=== PATIENT | female | born 1945 | race Caucasian/White ===

== ENCOUNTER 2020-03-07 09:02 | Inpatient (IN) | payer MEDICARE, OTHER ==
[2020-03-03 13:10] LABS: Basophils # (auto) 0.1 10 ^3/uL (0-0.2); Eosinophils # (auto) 0.1 10 ^3/uL (0-0.8); Eosinophils % (auto) 1.7 % (0.0-7.0); Hematocrit 47.2 % (36.0-46.0); Hemoglobin 15.2 g/dL (12.2-16.2); Lymphocytes # (auto) 0.7 10 ^3/uL (0.4-5.4); Lymphocytes % (auto) 17.3 % (10.0-50.0); Mean Corpuscular Hemoglobin 29.1 pg (28.0-32.0); Mean Corpuscular Hgb Conc. 32.1 g/dL (32.0-36.0); Mean Corpuscular Volume 90.4 fL (80.0-100.0); Monocytes # (auto) 0.2 10 ^3/uL (0-1.3); Monocytes % (auto) 5.4 % (0.0-12.0); Neutrophils # (auto) 2.9 10 ^3/uL (1.6-8.6); Neutrophils % (auto) 73.6 % (37.0-80.0); Nucleated Red Blood Cells % 0.7 %; Platelet Count (auto) 107 10^3/uL (140-450); Red Blood Cells 5.22 10^6/uL (4.0-5.20); Red Cell Distribution Width 16.6 % (11.8-14.3)
[2020-03-03 13:26] LABS: INR 1.12 (0.9-1.15); Partial Thromboplastin Time 32.1 sec (23.64-32.05)
[2020-03-03 13:29] LABS: Urine Bacteria FEW /hpf (None Seen); Urine Blood Negative /uL (Negative); Urine Hyaline Cast FEW /lpf (0 - 2); Urine Mucus FEW (None Seen); Urine Specific Gravity 1.016 (1.001-1.035); Urine WBC 1 /hpf (0 - 5)
[2020-03-03 14:25] LABS: Albumin 4.2 g/dL (3.4-5.0); Calcium 9.7 mg/dL (8.5-10.1); Potassium 4.1 mmol/L (3.5-5.1)
[2020-03-03 14:28] LABS: BUN/Creatinine Ratio 20.5; Bilirubin, Total 0.8 mg/dL (0.2-1.0); Total Protein 8.2 g/dL (6.4-8.2)
[~2020-03-07] VITALS: Ht 165.1 cm; Wt 100.0 kg
[~2020-03-07 09:02] MED LIST: ALLO100T PO; AMLO5TAB15 PO; FURO40TA4 PO; HYDR-531 PO
[2020-03-07] MEDS ORDERED: ACETAMINOPHEN IV 100 ML IV ONE (09:58)
[2020-03-07] MEDS ORDERED: CELECOXIB 100 MG CAP ONE (09:58)
[2020-03-07] MEDS ORDERED: ceFAZolin 1GM/50ML 50 ML IV ONE ×2 (09:58→10:48)
[2020-03-07] MEDS ORDERED: PREGABALIN CAPSULE 75 MG CAP ONE (09:58)
[2020-03-07] MEDS ORDERED: GENTAMICIN SULF 80 MG/2 ML VIAL ONE (09:59)
[2020-03-07] MEDS ORDERED: ceFAZolin 1GM 2 GM in D5W 5% 100 ML IV ONE (10:00)
[2020-03-07] MEDS ORDERED: GENTAMICIN SULFATE 80 MG in D5W 5% 100 ML IV ONE (10:00)
[2020-03-07] MEDS ORDERED: ACETAMINOPHEN IV 1000 MG/100ML (10MG/ML) IV ONE (10:00)
[2020-03-07] MEDS ORDERED: CELECOXIB 100 MG CAP PO ONE (10:00)
[2020-03-07] MEDS ORDERED: BUPIVACAINE W/ EPINEPH 0.25% INJ 50ML MDV ONE (11:48)
[2020-03-07] MEDS ORDERED: TRANEXAMIC ACID 10 ML ONE (11:48)
[2020-03-07] MEDS ORDERED: VANCOMYCIN HCL 1000 MG VL ONE (11:49)
[2020-03-07] MEDS ORDERED: KETOROLAC TROMETH 30 MG/ML 1ML VIAL ONE (11:49)
[2020-03-07] MEDS ORDERED: TETRACAINE 1% INJ 2 ML VIAL IJ ONE (11:51)
[2020-03-07] MEDS ORDERED: MORPHINE SULF(PF) 0.5MG/ML 10ML VIAL ONE ×2 (12:10→12:59)
[2020-03-07] MEDS ORDERED: MIDAZOLAM HCL 1MG/1ML-2 ML VIAL ONE ×2 (12:11→12:40)
[2020-03-07] MEDS ORDERED: fentaNYL CITRATE 100 MCG/2 ML VL ONE (12:11)
[2020-03-07] MEDS ORDERED: PROPOFOL 10 MG/ML 20 ML IV ONE (12:39)
[2020-03-07] MEDS ORDERED: ePHEDrine SULFATE 50 MG/ML AMP IV PRN (13:15)
[2020-03-07] MEDS ORDERED: NALOXONE HCL 0.4 MG/ML VIAL IV PRN (13:15)
[2020-03-07] MEDS ORDERED: MIDAZOLAM HCL 1MG/1ML-2 ML VIAL IV PRN (13:15)
[2020-03-07] MEDS ORDERED: NALBUPHINE HCL 10 MG/1ml INJECTION SUBCUT ONE (13:15)
[2020-03-07] MEDS ORDERED: ONDANSETRON HCL 4 MG/2 ML VIAL IV PRN ×2 (13:15→14:30)
[2020-03-07] MEDS ORDERED: LABETALOL HCL 5 MG/ML 4ML SYRINGE IV PRN (13:15)
[2020-03-07] MEDS ORDERED: diphenhdrAMINE HCL 50 MG/1 ML VL IV PRN (13:15)
[2020-03-07] MEDS ORDERED: HYDROmorphone HCL 2 MG/ML VL IV PRN (13:15)
[2020-03-07] MEDS ORDERED: DexAMETHasone SOD PHOS 10MG/1ML VIAL INJ IV PRN (13:15)
[2020-03-07] MEDS: LACTATED RINGER'S 1,000 ML IV SCH (14:27)
[2020-03-07] MEDS: ceFAZolin 1GM/50ML 50 ML IV SCH ×2 (14:30→20:30)
[2020-03-07] MEDS ORDERED: BISACODYL 5 MG EC TAB PO PRN (14:30)
[2020-03-07] MEDS ORDERED: ACETAMINOPHEN 325 MG TAB PO PRN (14:30)
[2020-03-07] MEDS ORDERED: NITROGLYCERIN 0.4 MG SL TAB SL PRN (14:30)
[2020-03-07] MEDS ORDERED: MORPHINE SULF INJ 2 MG/ML SYRINGE 1ML IV PRN (14:30)
[2020-03-07 22:00] VITALS: BP_SYST 134; BP_SYST 86; BP_DIAS 55; BP_DIAS 66
[2020-03-07 23:00] VITALS: BP 121/59
[2020-03-07] MEDS: DOCUSATE SOD 100 MG CAP PO SCH (23:27)
[2020-03-07] MEDS: SODIUM CHLOR 0.9% PF (SALINE LOCK) 10ML VIAL/SYR IV SCH (23:28)
[2020-03-08] VITALS (12 sets, daily range): BP systolic 80–102; BP diastolic 50–65
[2020-03-08] MEDS: LACTATED RINGER'S 1,000 ML IV SCH ×3 (01:37→22:04)
[2020-03-08] MEDS: ceFAZolin 1GM/50ML 50 ML IV SCH (02:06)
[2020-03-08] MEDS: SODIUM CHLOR 0.9% PF (SALINE LOCK) 10ML VIAL/SYR IV SCH ×3 (06:06→22:04)
[2020-03-08 07:17] LABS: Hematocrit 31.1 % (36.0-46.0); Hemoglobin 10.2 g/dL (12.2-16.2)
[2020-03-08 07:51] LABS: Potassium 4.3 mmol/L (3.5-5.1)
[2020-03-08 08:02] LABS: Albumin 2.7 g/dL (3.4-5.0); BUN/Creatinine Ratio 20.6; Bilirubin, Total 0.6 mg/dL (0.2-1.0); Calcium 8.1 mg/dL (8.5-10.1); Total Protein 5.5 g/dL (6.4-8.2)
[2020-03-08] MEDS ORDERED: amLODIPine BESYLATE 5 MG TAB PO SCH (10:00)
[2020-03-08] MEDS ORDERED: FUROSEMIDE 40 MG TAB PO SCH (10:00)
[2020-03-08] MEDS: DOCUSATE SOD 100 MG CAP PO SCH ×2 (10:11→22:04)
[2020-03-08] MEDS: ENOXAPARIN SOD 40 MG/0.4 ML SYRINGE SC SCH (10:12)
[2020-03-08] MEDS: SODIUM CHLORIDE 0.9% 1,000 ML IV SCH (17:01)
[2020-03-09] MEDS: SODIUM CHLORIDE 0.9% 1,000 ML IV SCH ×3 (03:04→22:15)
[2020-03-09 05:00] VITALS: BP 91/53
[2020-03-09] MEDS: HYDROmorphone HCL 2 MG/ML VL IV PRN ×3 (07:13→15:38)
[2020-03-09] MEDS: LACTATED RINGER'S 1,000 ML IV SCH ×2 (07:14→15:28)
[2020-03-09] MEDS: SODIUM CHLOR 0.9% PF (SALINE LOCK) 10ML VIAL/SYR IV SCH ×3 (07:14→21:48)
[2020-03-09 07:18] LABS: Hemoglobin 9.7 g/dL (12.2-16.2)
[2020-03-09 08:33] VITALS: BP 90/51
[2020-03-09] MEDS: ALLOPURINOL 100 MG TAB PO SCH (09:21)
[2020-03-09] MEDS: ENOXAPARIN SOD 40 MG/0.4 ML SYRINGE SC SCH (09:21)
[2020-03-09] MEDS: DOCUSATE SOD 100 MG CAP PO SCH ×2 (09:21→21:48)
[2020-03-09] MEDS: HYDROcodone-ACET 10/325MG TAB PO PRN ×2 (12:11→21:04)
[2020-03-09 12:33] VITALS: BP 89/96
[2020-03-09] MEDS ORDERED: SODIUM CHLORIDE 0.9% 1,000 ML IV SCH (14:15)
[2020-03-09 14:44] LABS: Basophils # (auto) 0 10 ^3/uL (0-0.2); Basophils % (auto) 0.7 % (0.0-2.0); Eosinophils # (auto) 0.1 10 ^3/uL (0-0.8); Eosinophils % (auto) 1.7 % (0.0-7.0); Hematocrit 27.7 % (36.0-46.0); Hemoglobin 9.1 g/dL (12.2-16.2); Lymphocytes # (auto) 0.6 10 ^3/uL (0.4-5.4); Lymphocytes % (auto) 13.2 % (10.0-50.0); Mean Corpuscular Hemoglobin 29.8 pg (28.0-32.0); Mean Corpuscular Hgb Conc. 32.9 g/dL (32.0-36.0); Mean Corpuscular Volume 90.6 fL (80.0-100.0); Monocytes # (auto) 0.3 10 ^3/uL (0-1.3); Monocytes % (auto) 7.1 % (0.0-12.0); Neutrophils # (auto) 3.3 10 ^3/uL (1.6-8.6); Neutrophils % (auto) 77.3 % (37.0-80.0); Platelet Count (auto) 87 10^3/uL (140-450); Red Blood Cells 3.06 10^6/uL (4.0-5.20); Red Cell Distribution Width 16.9 % (11.8-14.3); White Blood Cell 4.3 10^3/uL (4.4-10.8)
[2020-03-09 15:01] LABS: BUN/Creatinine Ratio 27.1; Calcium 7.8 mg/dL (8.5-10.1); Potassium 4.4 mmol/L (3.5-5.1)
[2020-03-09 16:42] VITALS: BP 89/53
[2020-03-09 22:00] VITALS: BP 94/56
[2020-03-10] MEDS: HYDROmorphone HCL 2 MG/ML VL IV PRN ×3 (00:40→19:30)
[2020-03-10] MEDS: LACTATED RINGER'S 1,000 ML IV SCH ×3 (02:27→22:27)
[2020-03-10 05:23] VITALS: BP 90/53
[2020-03-10] MEDS: SODIUM CHLOR 0.9% PF (SALINE LOCK) 10ML VIAL/SYR IV SCH ×3 (06:00→22:00)
[2020-03-10 06:38] LABS: Hematocrit 27.2 % (36.0-46.0); Hemoglobin 8.9 g/dL (12.2-16.2)
[2020-03-10] MEDS: SODIUM CHLORIDE 0.9% 1,000 ML IV SCH ×2 (09:44→18:09)
[2020-03-10] MEDS: ALLOPURINOL 100 MG TAB PO SCH (09:44)
[2020-03-10] MEDS: HYDROcodone-ACET 10/325MG TAB PO PRN ×3 (09:44→22:53)
[2020-03-10] MEDS: DOCUSATE SOD 100 MG CAP PO SCH ×2 (09:44→22:00)
[2020-03-10] MEDS: ENOXAPARIN SOD 40 MG/0.4 ML SYRINGE SC SCH (09:45)
[2020-03-10 09:47] VITALS: BP 86/49
[2020-03-10 14:48] VITALS: BP 96/59
[2020-03-10 17:01] VITALS: BP 96/57
[2020-03-10 22:00] VITALS: BP 104/52
[2020-03-11] MEDS: HYDROmorphone HCL 2 MG/ML VL IV PRN ×3 (01:26→14:57)
[2020-03-11] MEDS: SODIUM CHLORIDE 0.9% 1,000 ML IV SCH ×2 (04:15→14:15)
[2020-03-11 05:00] VITALS: BP 107/63
[2020-03-11] MEDS: HYDROcodone-ACET 10/325MG TAB PO PRN (05:02)
[2020-03-11] MEDS: SODIUM CHLOR 0.9% PF (SALINE LOCK) 10ML VIAL/SYR IV SCH ×2 (05:55→14:00)
[2020-03-11] MEDS: LACTATED RINGER'S 1,000 ML IV SCH ×2 (08:27→18:27)
[2020-03-11 08:30] VITALS: BP 105/61
[2020-03-11] MEDS: ENOXAPARIN SOD 40 MG/0.4 ML SYRINGE SC SCH (10:00)
[2020-03-11] MEDS: ALLOPURINOL 100 MG TAB PO SCH (10:14)
[2020-03-11] MEDS: DOCUSATE SOD 100 MG CAP PO SCH (10:14)
[2020-03-11 12:30] VITALS: BP 109/65
[2020-03-11 16:41] VITALS: BP 123/69
== END 2020-03-11 20:00 | disposition left against medical advice (07) | DRG 470 ==
LOC: OVERFLOW 09:02 → EDSTATUS 10:00 → TELE-WESTW 21:45
PROVIDERS: ADMIT Orthopaedic Surgery Adult Reconstructive Orthopaedic Surgery; ATTEND Internal Medicine
PROC: 0SR906Z Replacement of Right Hip Joint with Oxidized Zirconium on Polyethylene Synthetic Substitute, Open Approach (ICD-10-PCS; principal; 2020-03-08)
PROC: 8E09XBZ Computer Assisted Procedure of Head and Neck Region (ICD-10-PCS; 2020-03-08)
DX: M16.0 Bilateral primary osteoarthritis of hip (principal); M87.9 Osteonecrosis, unspecified; M17.0 Bilateral primary osteoarthritis of knee; M10.9 Gout, unspecified; I95.9 Hypotension, unspecified; E66.01 Morbid (severe) obesity due to excess calories; Z68.31 Body mass index [BMI] 31.0-31.9, adult; Z96.653 Presence of artificial knee joint, bilateral; I10 Essential (primary) hypertension; Z80.7 Family history of other malignant neoplasms of lymphoid, hematopoietic and related tissues; Z82.49 Family history of ischemic heart disease and other diseases of the circulatory system; Z87.891 Personal history of nicotine dependence; Z53.29 Procedure and treatment not carried out because of patient's decision for other reasons; Z11.59 Encounter for screening for other viral diseases
CPT/HCPCS: 36415; 36600; 72170; 73501; 80048; 80053; 81001; 82805; 85014; 85018; 85025; 85610; 85730; 86850; 86900; 86901; 97110; 97163; 97530; C1713; G0378; J0131; J0690; J1885; J2250; J2704; J7060